=== PATIENT | female | born 2000 | race Caucasian/White ===

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

== ENCOUNTER → 2021-01-05 | Outpatient (CLI) | payer MEDICAID ==
[~2021-01-05] MED LIST: ALBU2.5V4; CETI10TA17; ELEX1TAB; FLUT16SP22; LIPA1CAP67; MONT10TA32; ONDA4TAB11 PO; PANT20TA18; POLY238P32; URSO300C3
[2021-01-05 15:46] LABS: BASOPHILS % (AUTO) 0 % (0-10); EOSINOPHILS # (AUTO) 0.2 10^3/uL (0.0-0.3); EOSINOPHILS % (AUTO) 2 % (0-10); HEMATOCRIT 34 % (35-52); HEMOGLOBIN 11.4 g/dL (11.5-16.0); LYMPHOCYTES % (AUTO) 27 % (12-44); MEAN CORPUSCULAR HEMOGLOBIN 28 pg (25-34); MEAN CORPUSCULAR HGB CONC 34 g/dL (32-36); MEAN CORPUSCULAR VOLUME 83 fL (80-99); MEAN PLATELET VOLUME 8.1 fL (9.0-12.2); MONOCYTES # (AUTO) 0.4 10^3/uL (0.0-1.0); MONOCYTES % (AUTO) 5 % (0-12); NEUTROPHILS # (AUTO) 4.8 10^3/uL (1.8-7.8); NEUTROPHILS % (AUTO) 65 % (42-75); PLATELET COUNT 160 10^3/uL (130-400); WHITE BLOOD COUNT 7.4 10^3/uL (4.3-11.0)
[2021-01-05 16:04] LABS: ALBUMIN 3.7 GM/DL (3.2-4.5); CHLORIDE 107 MMOL/L (98-107); POTASSIUM 3.8 MMOL/L (3.6-5.0); SODIUM 139 MMOL/L (135-145)
[2021-01-05 16:05] LABS: CALCIUM 8.8 MG/DL (8.5-10.1)
[2021-01-05 16:06] LABS: GLUCOSE 85 MG/DL (70-105)
[2021-01-05 16:07] LABS: TOTAL PROTEIN 6.9 GM/DL (6.4-8.2)
[2021-01-05 16:08] LABS: BILIRUBIN,TOTAL 0.3 MG/DL (0.1-1.0); CARBON DIOXIDE 22 MMOL/L (21-32)
[2021-01-05 16:10] LABS: ALKALINE PHOSPHATASE 76 U/L (40-136); CREATININE SERUM 0.56 MG/DL (0.60-1.30); GFR ESTIMATED > 60
[2021-01-05 16:11] LABS: BUN/CREATININE RATIO 16
[2021-01-05 16:13] LABS: ALANINE AMINOTRANSFERASE 13 U/L (0-55)
[2021-01-05 16:19] LABS: VANCOMYCIN,TROUGH 8.8 UG/ML (10.0-20.0)
== END ==
LOC: LAB 15:16
PROVIDERS: ATTEND Internal Medicine
DX: Z01.89 Encounter for other specified special examinations (principal)
CPT/HCPCS: 36415; 80053; 80202; 85025

== ENCOUNTER → 2021-01-08 | Outpatient (CLI) | payer MEDICAID ==
[~2021-01-08] MED LIST changes: +PYRI25TA4 PO
[2021-01-08 15:43] LABS: BASOPHILS % (AUTO) 1 % (0-10); EOSINOPHILS # (AUTO) 0.2 10^3/uL (0.0-0.3); EOSINOPHILS % (AUTO) 2 % (0-10); HEMATOCRIT 31 % (35-52); HEMOGLOBIN 10.6 g/dL (11.5-16.0); LYMPHOCYTES # (AUTO) 1.9 10^3/uL (1.0-4.0); LYMPHOCYTES % (AUTO) 23 % (12-44); MEAN CORPUSCULAR HEMOGLOBIN 28 pg (25-34); MEAN CORPUSCULAR HGB CONC 34 g/dL (32-36); MEAN CORPUSCULAR VOLUME 84 fL (80-99); MEAN PLATELET VOLUME 8.6 fL (9.0-12.2); MONOCYTES # (AUTO) 0.4 10^3/uL (0.0-1.0); MONOCYTES % (AUTO) 5 % (0-12); NEUTROPHILS # (AUTO) 5.6 10^3/uL (1.8-7.8); NEUTROPHILS % (AUTO) 69 % (42-75); PLATELET COUNT 151 10^3/uL (130-400); WHITE BLOOD COUNT 8.1 10^3/uL (4.3-11.0)
[2021-01-08 15:58] LABS: ALBUMIN 3.6 GM/DL (3.2-4.5); CHLORIDE 110 MMOL/L (98-107); POTASSIUM 3.6 MMOL/L (3.6-5.0); SODIUM 137 MMOL/L (135-145)
[2021-01-08 16:01] LABS: GLUCOSE 82 MG/DL (70-105); TOTAL PROTEIN 6.2 GM/DL (6.4-8.2)
[2021-01-08 16:02] LABS: BILIRUBIN,TOTAL 0.2 MG/DL (0.1-1.0); CARBON DIOXIDE 20 MMOL/L (21-32)
[2021-01-08 16:04] LABS: ALKALINE PHOSPHATASE 60 U/L (40-136); CREATININE SERUM 0.52 MG/DL (0.60-1.30); GFR ESTIMATED > 60
[2021-01-08 16:05] LABS: BUN/CREATININE RATIO 12
[2021-01-08 16:07] LABS: ALANINE AMINOTRANSFERASE 11 U/L (0-55)
[2021-01-08 16:13] LABS: VANCOMYCIN,TROUGH 7.6 UG/ML (10.0-20.0)
== END ==
LOC: LAB 15:20
DX: E84.0 Cystic fibrosis with pulmonary manifestations (principal); Z79.2 Long term (current) use of antibiotics
CPT/HCPCS: 36415; 80053; 80202; 85025

== ENCOUNTER 2021-01-10 17:50 | Emergency (ER) | payer MEDICAID ==
[~2021-01-10] VITALS: Ht 155 cm; Wt 45.0 kg
[~2021-01-10 17:50] MED LIST changes: -PYRI25TA4 PO
[2021-01-10 18:24] LABS: BILIRUBIN,URINE NEGATIVE (NEGATIVE); CLARITY,URINE CLEAR; COLOR,URINE YELLOW; GLUCOSE, URINE (UA) NEGATIVE (NEGATIVE); KETONES,URINE NEGATIVE (NEGATIVE); LEUKOCYTE ESTERASE ,URINE NEGATIVE (NEGATIVE); NITRITE,URINE NEGATIVE (NEGATIVE); PH,URINE 6.5 (5-9); PROTEIN,URINE NEGATIVE (NEGATIVE)
[2021-01-10] MEDS ORDERED: ONDANSETRON 4 MG/2 ML (SDV) Z0FRAN IVP ONE (18:30)
[2021-01-10] MEDS ORDERED: LACTATED RINGERS 1,000 ML IV ONE (18:30)
--- NOTE | 2021-01-10 18:34 | ED GI ---
General Chief Complaint: Abdominal/GI Problems Stated Complaint: N/V, 13 WKS PREG Nursing Triage Note: PT AMBULATES TO ER WITH C/O NAUSEA/ VOMITTING SINCE YESTERDAY. PT ALSO STATES SHE HAS A MIGRAINE AND IS 13 WEEKS . PT ALSO HAS RECENTLY BEEN D/CD FROM [facility] FOR HER CYSTIC FIBROSIS Source of Information: Patient Exam Limitations: No Limitations History of Present Illness Date Seen by Provider: Jan 10, 2021 Time Seen by Provider: 18:15 Initial Comments Patient to the ER by private conveyance with chief complaint that she recently got out of the hospital and finished her IV antibiotics for pneumonia at related to her cystic fibrosis. She says in the day she is been home she has had nausea related to her and went to get some pyridoxine but all he had was the 100 mg tablets which she thought might be too concentrated for her since she is of a slight build. She is going to asked Dr. Zuniga for a prescription. She does not have any Zofran but she says that has helped in the past. She has not been able to eat or drink all day. She is not having diarrhea fevers cough shortness of air wheezing or chest pain. She is 30 teen weeks and 2 days with an LMP of October 09, 2020. Allergies and Home Medications Allergies Coded Allergies: Penicillins (Verified Allergy, Unknown, 12/20/20) ceftaroline fosamil (Verified Allergy, Unknown, 12/20/20) piperacillin (Verified Allergy, Unknown, 12/20/20) tazobactam (Verified Allergy, Unknown, 12/20/20) vancomycin (Verified Allergy, Unknown, 12/20/20) Uncoded Allergies: hypofix (Allergy, Unknown, 12/20/20) Home Medications Ondansetron 4 Mg Tab.rapdis, 4 MG PO Q6H PRN for NAUSEA/VOMITING Prescribed by: OSMAR JARAMILLO on 12/20/20 1349 Ondansetron 4 Mg Tab.rapdis, 4 MG PO Q6H PRN for NAUSEA/VOMITING Prescribed by: GERARD ANGELA on 01/10/21 184 Pyridoxine HCl 25 Mg Tablet, 25 MG PO Q6H Prescribed by: GERARD ANGELA on 01/10/21 184 Patient Home Medication List Home Medication List Reviewed: Yes Review of Systems Review of Systems Constitutional: No chills, No fever EENTM: No Blurred Vision, No Double Vision Respiratory: Denies Cough, Denies Shortness of Air Cardiovascular: Denies Chest Pain, Denies Lightheadedness Gastrointestinal: Denies Constipated, Denies Diarrhea, Denies Nausea Genitourinary: Denies Drainage, Denies Frequency Musculoskeletal: No back pain, No joint pain All Other Systems Reviewed Negative Unless Noted: Yes Past Bzsmxuo-Oypdgg-Rmlyec Hx Patient Social History Tobacco Use?: No Use of E-Cig and/or Vaping dev: No Substance use?: No Seasonal Allergies Seasonal Allergies: Yes Past Medical History Surgeries: Yes Tonsillectomy Respiratory: Yes Pulmonary Fibrosis Cardiac: No Neurological: No Expected Date of Delivery: Jul 21, 2020 Genitourinary: No Gastrointestinal: Yes Gastroesophageal Reflux Musculoskeletal: No Endocrine: No HEENT: No Cancer: No Psychosocial: No Integumentary: No Blood Disorders: No Physical Exam Vital Signs Vital Signs - First Documented 01/10/21 18:10 Temp 36.7 Pulse 97 Resp 18 B/P (MAP) 116/69 (85) Capillary Refill : Less Than 3 Seconds Height/Weight/BMI Height: '" Weight: lbs. oz. kg; 18.00 BMI Method: General Appearance: WD/WN, mild distress HEENT: PERRL/EOMI, pharynx normal Neck: full range of motion, normal inspection Respiratory: lungs clear, normal breath sounds, no respiratory distress, no accessory muscle use Cardiovascular: normal peripheral pulses, regular rate, rhythm Peripheral Pulses: 2+ Radial Pulses (R), 2+ Radial Pulses (L) Gastrointestinal: normal bowel sounds, non tender, soft Neurologic/Psychiatric: alert, normal mood/affect, oriented x 3 Progress/Results/Core Measures Results/Orders Lab Results Laboratory Tests Test 01/10/21 18:15 01/10/21 18:27 Range/Units Urine Color YELLOW Urine Clarity CLEAR Urine pH 6.5 5-9 Urine Specific [place] 1.025 H 1.016-1.022 Urine Protein NEGATIVE NEGATIVE Urine Glucose (UA) NEGATIVE NEGATIVE Urine Ketones NEGATIVE NEGATIVE Urine Nitrite NEGATIVE NEGATIVE Urine Bilirubin NEGATIVE NEGATIVE Urine Urobilinogen 0.2 < = 1.0 MG/DL Urine Leukocyte Esterase NEGATIVE NEGATIVE Urine RBC (Auto) NEGATIVE NEGATIVE Urine RBC NONE /HPF Urine WBC NONE /HPF Urine Crystals NONE /LPF Urine Bacteria NEGATIVE /HPF Urine Casts NONE /LPF Urine Mucus NEGATIVE /LPF Urine Culture Indicated NO White Blood Count 9.8 4.3-11.0 10^3/uL Red Blood Count 3.98 3.80-5.11 10^6/uL Hemoglobin 11.5 11.5-16.0 g/dL Hematocrit 33 L 35-52 % Mean Corpuscular Volume 83 80-99 fL Mean Corpuscular Hemoglobin 29 25-34 pg Mean Corpuscular Hemoglobin Concent 35 32-36 g/dL Red Cell Distribution Width 14.6 H 10.0-14.5 % Platelet Count 147 130-400 10^3/uL Mean Platelet Volume 8.6 L 9.0-12.2 fL Immature Granulocyte % (Auto) 0 % Neutrophils (%) (Auto) 80 H 42-75 % Lymphocytes (%) (Auto) 14 12-44 % Monocytes (%) (Auto) 4 0-12 % Eosinophils (%) (Auto) 2 0-10 % Basophils (%) (Auto) 0 0-10 % Neutrophils # (Auto) 7.8 1.8-7.8 10^3/uL Lymphocytes # (Auto) 1.4 1.0-4.0 10^3/uL Monocytes # (Auto) 0.4 0.0-1.0 10^3/uL Eosinophils # (Auto) 0.2 0.0-0.3 10^3/uL Basophils # (Auto) 0.0 0.0-0.1 10^3/uL Immature Granulocyte # (Auto) 0.0 0.0-0.1 10^3/uL Sodium Level 137 135-145 MMOL/L Potassium Level 3.6 3.6-5.0 MMOL/L Chloride Level 105 98-107 MMOL/L Carbon Dioxide Level 21 21-32 MMOL/L Anion Gap 11 5-14 MMOL/L Blood Urea Nitrogen 6 L 7-18 MG/DL Creatinine 0.55 L 0.60-1.30 MG/DL Estimat Glomerular Filtration Rate > 60 BUN/Creatinine Ratio 11 Glucose Level 77 70-105 MG/DL Calcium Level 9.0 8.5-10.1 MG/DL Corrected Calcium 9.0 8.5-10.1 MG/DL Total Bilirubin 0.4 0.1-1.0 MG/DL Aspartate Amino Transf (AST/SGOT) 11 5-34 U/L Alanine Aminotransferase (ALT/SGPT) 12 0-55 U/L Alkaline Phosphatase 79 40-136 U/L Total Protein 7.2 6.4-8.2 GM/DL Albumin 4.0 3.2-4.5 GM/DL My Orders Orders - GERARD ANGELA Ua Culture If Indicated (01/10/21 18:08) Cbc With Automated Diff (01/10/21 18:26) Comprehensive Metabolic Panel (01/10/21 18:26) Ondansetron Injection (Zofran Injectio (01/10/21 18:30) Lactated Ringers (Lr 1000 Ml Iv Solution (01/10/21 18:30) Ed Iv/Invasive Line Start (01/10/21 18:26) Medications Given in ED Current Medications Medications Dose Ordered Sig/Ghazala Route Start Time Stop Time Status Last Admin Dose Admin Lactated Ringer's 1,000 ml @ 0 mls/hr Q0M ONCE IV 01/10/21 18:30 01/10/21 18:31 DC 01/10/21 18:33 999 MLS/HR Ondansetron HCl 4 mg ONCE ONCE IVP 01/10/21 18:30 01/10/21 18:31 DC 01/10/21 18:33 4 MG Vital Signs/I&O 01/10/21 18:10 Temp 36.7 Pulse 97 Resp 18 B/P (MAP) 116/69 (85) Blood Pressure Mean: 85 Progress Progress Note : Time: 18:38 Progress Note We will address her relative nausea and dehydration probably associated with her by 4 mg IV Zofran IV fluids and check some basic labs and urine. A prescription for Zofran and pyridoxine will be prescribed Departure Impression Primary Impression: Nausea/vomiting in Disposition: 01 HOME, SELF-CARE Condition: Stable Departure-Patient Inst. Decision time for Depature: 18:38 Referrals: LIZETH YU DO (PCP/Family) Primary Care Physician Patient Instructions: Nausea and Vomiting of Add. Discharge Instructions: Zofran 1 tablet under the tongue every 6 hours as necessary for nausea and/or vomiting. Pyridoxine 25 mg every 6 hours as necessary for nausea and/or vomiting. Follow-up with Dr. Zuniga. All discharge instructions reviewed with patient and/or family. Voiced understanding. Scripts Ondansetron (Ondansetron Odt) 4 Mg Tab.rapdis 4 MG PO Q6H PRN for NAUSEA/VOMITING, #10 TAB 0 Refills Prov: GERARD ANGELA 01/10/21 Pyridoxine HCl (Pyridoxine HCl) 25 Mg Tablet 25 MG PO Q6H for Nausea, #30 TAB 0 Refills Prov: GERARD ANGELA 01/10/21 GERARD NAGELA Jan 10, 2021 18:34
[2021-01-10 18:35] LABS: BASOPHILS % (AUTO) 0 % (0-10); EOSINOPHILS # (AUTO) 0.2 10^3/uL (0.0-0.3); EOSINOPHILS % (AUTO) 2 % (0-10); HEMATOCRIT 33 % (35-52); HEMOGLOBIN 11.5 g/dL (11.5-16.0); LYMPHOCYTES # (AUTO) 1.4 10^3/uL (1.0-4.0); LYMPHOCYTES % (AUTO) 14 % (12-44); MEAN CORPUSCULAR HEMOGLOBIN 29 pg (25-34); MEAN CORPUSCULAR HGB CONC 35 g/dL (32-36); MEAN CORPUSCULAR VOLUME 83 fL (80-99); MEAN PLATELET VOLUME 8.6 fL (9.0-12.2); MONOCYTES # (AUTO) 0.4 10^3/uL (0.0-1.0); MONOCYTES % (AUTO) 4 % (0-12); NEUTROPHILS # (AUTO) 7.8 10^3/uL (1.8-7.8); NEUTROPHILS % (AUTO) 80 % (42-75); PLATELET COUNT 147 10^3/uL (130-400); WHITE BLOOD COUNT 9.8 10^3/uL (4.3-11.0)
[2021-01-10] MEDS ORDERED: PYRI25TA4 PO (18:41)
[2021-01-10] MEDS ORDERED: ONDA4TAB11 PO (18:41)
[2021-01-10 18:47] LABS: CHLORIDE 105 MMOL/L (98-107); POTASSIUM 3.6 MMOL/L (3.6-5.0); SODIUM 137 MMOL/L (135-145)
[2021-01-10 18:49] LABS: BACTERIA,URINE NEGATIVE /HPF
[2021-01-10 18:49] LABS: GLUCOSE 77 MG/DL (70-105); TOTAL PROTEIN 7.2 GM/DL (6.4-8.2)
[2021-01-10 18:50] LABS: CARBON DIOXIDE 21 MMOL/L (21-32)
[2021-01-10 18:51] LABS: BILIRUBIN,TOTAL 0.4 MG/DL (0.1-1.0)
[2021-01-10 18:53] LABS: ALKALINE PHOSPHATASE 79 U/L (40-136); CREATININE SERUM 0.55 MG/DL (0.60-1.30); GFR ESTIMATED > 60
[2021-01-10 18:54] LABS: BUN/CREATININE RATIO 11
[2021-01-10 18:56] LABS: ALANINE AMINOTRANSFERASE 12 U/L (0-55)
[2021-01-10 19:40] VITALS: BP 106/71
[2021-01-10] MEDS ORDERED: ACETAMINOPHEN 500 MG TAB (TYLENOL) PO ONE (19:45)
== END 2021-01-10 19:40 | disposition home or self-care (01) ==
LOC: EDUNIT# 17:50 → ER 17:52
DX: O21.0 Mild hyperemesis gravidarum (principal); Z3A.13 13 weeks gestation of pregnancy
CPT/HCPCS: 36415; 80053; 81000; 85025

== ENCOUNTER 2021-01-12 10:12 | Emergency (ER) | payer MEDICAID ==
[~2021-01-12] VITALS: Ht 154.9 cm; Wt 45.4 kg
[~2021-01-12 10:12] MED LIST changes: +PYRI25TA4 PO
[2021-01-12 10:49] LABS: BILIRUBIN,URINE NEGATIVE (NEGATIVE); CLARITY,URINE CLEAR; COLOR,URINE YELLOW; GLUCOSE, URINE (UA) NEGATIVE (NEGATIVE); KETONES,URINE TRACE (NEGATIVE); LEUKOCYTE ESTERASE ,URINE TRACE (NEGATIVE); NITRITE,URINE NEGATIVE (NEGATIVE); PH,URINE 6.5 (5-9); PROTEIN,URINE NEGATIVE (NEGATIVE)
[2021-01-12 10:55] LABS: BASOPHILS % (AUTO) 0 % (0-10); EOSINOPHILS # (AUTO) 0.2 10^3/uL (0.0-0.3); EOSINOPHILS % (AUTO) 2 % (0-10); HEMATOCRIT 32 % (35-52); HEMOGLOBIN 10.9 g/dL (11.5-16.0); LYMPHOCYTES # (AUTO) 1.3 10^3/uL (1.0-4.0); LYMPHOCYTES % (AUTO) 19 % (12-44); MEAN CORPUSCULAR HEMOGLOBIN 28 pg (25-34); MEAN CORPUSCULAR HGB CONC 34 g/dL (32-36); MEAN CORPUSCULAR VOLUME 84 fL (80-99); MEAN PLATELET VOLUME 8.6 fL (9.0-12.2); MONOCYTES # (AUTO) 0.3 10^3/uL (0.0-1.0); MONOCYTES % (AUTO) 4 % (0-12); NEUTROPHILS # (AUTO) 5.2 10^3/uL (1.8-7.8); NEUTROPHILS % (AUTO) 74 % (42-75); PLATELET COUNT 130 10^3/uL (130-400)
[2021-01-12 11:01] LABS: BACTERIA,URINE NEGATIVE /HPF; SQUAMOUS EPITHELIAL CELL,UR RARE /HPF; WBC,URINE RARE /HPF
[2021-01-12 12:23] LABS: CHLORIDE 104 MMOL/L (98-107)
[2021-01-12 12:24] LABS: POTASSIUM 3.3 MMOL/L (3.6-5.0); SODIUM 137 MMOL/L (135-145)
[2021-01-12 12:25] LABS: CALCIUM 8.9 MG/DL (8.5-10.1); GLUCOSE 161 MG/DL (70-105)
[2021-01-12 12:27] LABS: CARBON DIOXIDE 21 MMOL/L (21-32)
[2021-01-12 12:29] LABS: CREATININE SERUM 0.65 MG/DL (0.60-1.30); GFR ESTIMATED > 60
[2021-01-12 12:30] LABS: BUN/CREATININE RATIO 9
--- NOTE | 2021-01-12 13:58 | Diagnostic Imaging Report ---
Clinical indication: Patient with cystic fibrosis. Patient is . consent form signed and patient was shielded. Exam: Chest x-ray PA and lateral views. Comparisons: None. Findings: There is prominence of the central and perihilar pulmonary bronchi likely related to bronchiectasis. There is curvilinear and increased amorphous airspace opacities involving the left lung apex. There is amorphous patchy airspace opacities and nodular areas involving the lateral left lung base. There is no pleural effusion or pneumothorax. Hyperinflated lungs are seen with slight thoracic kyphosis and increased retrosternal clear space and flattening of the hemidiaphragms. Port-A-Cath seen overlying the right chest with tip in the distal spaces vena cava. Pulmonary vasculature and cardiac silhouettes within normal limits as visualized. Bones show no significant abnormality. Impression: 1: Lung findings consistent with patient's history of cystic fibrosis. There is concern for bronchiectasis centrally and involving the perihilar regions. 2: There is amorphous and curvilinear opacities in left lung apex and lateral left lung base. Acute infiltrates, mucus plugging, and/or scarring may be considered. Comparison to prior chest x-rays and clinical symptoms would better evaluate if there are acute infiltrates. Dictated by: Dictated on workstation # [id number]
--- NOTE | 2021-01-12 14:24 | ED General ---
General Chief Complaint: Female Reproductive Stated Complaint: VAGINAL BLEEDING 13 WKS PREG Nursing Triage Note: PT ARRIVED BY PRIVATE VEHICLE WITH CHIEF COMPLAINT OF VAGINAL BLEEDING. PT WAS ALERT, ORIENTED X 4 AND AMBULATORY. PT STATED ONSET WAS THIS MORNING WHEN SHE WENT TO THE BATHROOM AND BEFORE URINATING SHE HAD BLEEDING. LAST MENSTRAL WAS SEPTEMBER BUT THEY STATED SHE IS 12 WEEKS AND [address] YU. PT'S VITALS WERE DONE ON ARRIVAL AND URINE WAS OBTAINED. Source of Information: Patient Exam Limitations: No Limitations History of Present Illness Date Seen by Provider: Jan 12, 2021 Time Seen by Provider: 10:23 Initial Comments This 20-year-old young lady at 12 to 14 weeks gestational age presents to the emergency room with complaints of vaginal bleeding without pain or other symptoms. She has cystic fibrosis and sees a high risk slunk skinner. Bleeding is no longer significant. During exam she is also noted to be tachycardic and to have crackles and rhonchi in the left lung. She reports recently being dismissed from [facility] where she was treated with IV antibiotics. She just finished antibiotic therapy a couple days ago. She is afebrile. Allergies and Home Medications Allergies Coded Allergies: Penicillins (Verified Allergy, Unknown, 12/20/20) ceftaroline fosamil (Verified Allergy, Unknown, 12/20/20) piperacillin (Verified Allergy, Unknown, 12/20/20) tazobactam (Verified Allergy, Unknown, 12/20/20) vancomycin (Verified Allergy, Unknown, 12/20/20) Uncoded Allergies: hypofix (Allergy, Unknown, 12/20/20) Home Medications Ondansetron 4 Mg Tab.rapdis, 4 MG PO Q6H PRN for NAUSEA/VOMITING Prescribed by: OSMAR JARAMILLO on 12/20/20 1349 Ondansetron 4 Mg Tab.rapdis, 4 MG PO Q6H PRN for NAUSEA/VOMITING Prescribed by: GERARD ANGELA on 01/10/21 184 Pyridoxine HCl 25 Mg Tablet, 25 MG PO Q6H Prescribed by: GERARD ANGELA on 01/10/21 184 Patient Home Medication List Home Medication List Reviewed: Yes Review of Systems Review of Systems Constitutional: no symptoms reported EENTM: no symptoms reported Respiratory: see HPI Cardiovascular: see HPI Gastrointestinal: no symptoms reported Genitourinary: see HPI : Yes LMP: Oct 02, 2020 Musculoskeletal: no symptoms reported Skin: no symptoms reported Psychiatric/Neurological: No Symptoms Reported Hematologic/Lymphatic: See HPI Immunological/Allergic: no symptoms reported Past Zejwjcj-Gxwhbx-Pdyjws Hx Patient Social History Tobacco Use?: No Smoking Status: Never a Smoker Substance use?: No Alcohol Use?: No Pt feels they are or have been: No Seasonal Allergies Seasonal Allergies: Yes Past Medical History Surgeries: Yes (Ports, feeding tube) Tonsillectomy Respiratory: Yes Pulmonary Fibrosis (Cystic fibrosis) Cardiac: No Neurological: No : Yes Last Menstrual Period: Oct 02, 1990 Genitourinary: No Gastrointestinal: Yes Gastroesophageal Reflux Musculoskeletal: No Endocrine: No HEENT: No Cancer: No Psychosocial: No Integumentary: No Blood Disorders: No Physical Exam Vital Signs Vital Signs - First Documented 01/12/21 10:38 Temp 36.9 Pulse 127 Resp 18 B/P (MAP) 115/71 (86) Pulse Ox 100 O2 Delivery Room Air Capillary Refill : Less Than 3 Seconds Height, Weight, BMI Height: '" Weight: lbs. oz. 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 Norm as Tested Skin: Normal Color, Warm/Dry Progress/Results/Core Measures Suspected Sepsis SIRS Temperature: Pulse: 127 Respiratory Rate: 18 Laboratory Tests 01/12/21 10:50: White Blood Count 7.0 Blood Pressure 115 /71 Mean: 86 Laboratory Tests 01/12/21 10:50: Creatinine 0.65, Platelet Count 130 Results/Orders Lab Results Laboratory Tests Test 01/12/21 10:38 01/12/21 10:50 01/12/21 12:33 Range/Units Urine Color YELLOW Urine Clarity CLEAR Urine pH 6.5 5-9 Urine Specific [place] 1.015 L 1.016-1.022 Urine Protein NEGATIVE NEGATIVE Urine Glucose (UA) NEGATIVE NEGATIVE Urine Ketones TRACE H NEGATIVE Urine Nitrite NEGATIVE NEGATIVE Urine Bilirubin NEGATIVE NEGATIVE Urine Urobilinogen 0.2 < = 1.0 MG/DL Urine Leukocyte Esterase TRACE H NEGATIVE Urine RBC (Auto) NEGATIVE NEGATIVE Urine RBC NONE /HPF Urine WBC RARE /HPF Urine Squamous Epithelial Cells RARE /HPF Urine Crystals NONE /LPF Urine Bacteria NEGATIVE /HPF Urine Casts NONE /LPF Urine Mucus NEGATIVE /LPF Urine Culture Indicated NO White Blood Count 7.0 4.3-11.0 10^3/uL Red Blood Count 3.84 3.80-5.11 10^6/uL Hemoglobin 10.9 L 11.5-16.0 g/dL Hematocrit 32 L 35-52 % Mean Corpuscular Volume 84 80-99 fL Mean Corpuscular Hemoglobin 28 25-34 pg Mean Corpuscular Hemoglobin Concent 34 32-36 g/dL Red Cell Distribution Width 15.0 H 10.0-14.5 % Platelet Count 130 130-400 10^3/uL Mean Platelet Volume 8.6 L 9.0-12.2 fL Immature Granulocyte % (Auto) 0 % Neutrophils (%) (Auto) 74 42-75 % Lymphocytes (%) (Auto) 19 12-44 % Monocytes (%) (Auto) 4 0-12 % Eosinophils (%) (Auto) 2 0-10 % Basophils (%) (Auto) 0 0-10 % Neutrophils # (Auto) 5.2 1.8-7.8 10^3/uL Lymphocytes # (Auto) 1.3 1.0-4.0 10^3/uL Monocytes # (Auto) 0.3 0.0-1.0 10^3/uL Eosinophils # (Auto) 0.2 0.0-0.3 10^3/uL Basophils # (Auto) 0.0 0.0-0.1 10^3/uL Immature Granulocyte # (Auto) 0.0 0.0-0.1 10^3/uL Sodium Level 137 135-145 MMOL/L Potassium Level 3.3 L 3.6-5.0 MMOL/L Chloride Level 104 98-107 MMOL/L Carbon Dioxide Level 21 21-32 MMOL/L Anion Gap 12 5-14 MMOL/L Blood Urea Nitrogen 6 L 7-18 MG/DL Creatinine 0.65 0.60-1.30 MG/DL Estimat Glomerular Filtration Rate > 60 BUN/Creatinine Ratio 9 Glucose Level 161 H 70-105 MG/DL Calcium Level 8.9 8.5-10.1 MG/DL C-Reactive Protein High Sensitivity 9.95 H 0.00-0.50 MG/DL Human Chorionic Gonadotropin, Quant [id number] H <5 MIU/ML Influenza Type A (RT-PCR) Not Detected Not Detecte Influenza Type B (RT-PCR) Not Detected Not Detecte SARS-CoV-2 RNA (RT-PCR) Not Detected Not Detecte My Orders Orders - MIKKI BLAIR MD Cbc With Automated Diff (01/12/21 10:23) Hcg,Quantitative (01/12/21 10:23) Ua Culture If Indicated (01/12/21 10:23) Abo Rh Type (01/12/21 10:23) Basic Metabolic Panel (01/12/21 12:13) Hs C Reactive Protein (01/12/21 12:13) Chest Pa/Lat (2 View) (01/12/21 12:13) Covid 19 Inhouse Test (01/12/21 12:13) Influenza A And B By Pcr (01/12/21 12:13) Potassium Chloride (Tablet) (Klor Con Ta (01/12/21 15:30) Vital Signs/I&O 01/12/21 01/12/21 10:38 15:35 Temp 36.9 Pulse 127 97 Resp 18 16 B/P (MAP) 115/71 (86) 111/71 Pulse Ox 100 100 O2 Delivery Room Air Room Air Capillary Refill : Less Than 3 Seconds Blood Pressure Mean: 86 Progress Note : Progress Note I contacted [facility] for phone referral. I discussed with the cystic fibrosis clinic physician almond blancher hand. We discussed x-ray findings, vital signs, and labs. The consulting physician did not feel that further treatment with antibiotics or transfer were necessary. He recommended that she contact the CF clinic to discuss further in the morning. I encouraged her to drink plenty of clear liq uids and to also follow-up with her slunk skinner as soon as possible. See discharge instructions. Patient had some mild hypokalemia but declined oral replacement. She will work on dietary replacement. Diagnostic Imaging Diagonstic Imaging: Xray Plain Films/CT/US/NM/MRI: chest Comments Chest x-ray viewed by me and report reviewed. See report below: NAME: PARISA [facility]EL [facility] REC#: [id number] PT STATUS: DEP ER : 2001 PHYSICIAN: MIKKI BLAIR MD ADMIT DATE: 01/12/21/ER Signed Date of Exam:01/12/21 CHEST PA/LAT (2 VIEW) Clinical indication: Patient with cystic fibrosis. Patient is . consent form signed and patient was shielded. Exam: Chest x-ray PA and lateral views. Comparisons: None. Findings: There is prominence of the central and perihilar pulmonary bronchi likely related to bronchiectasis. There is curvilinear and increased amorphous airspace opacities involving the left lung apex. There is amorphous patchy airspace opacities and nodular areas involving the lateral left lung base. There is no pleural effusion or pneumothorax. Hyperinflated lungs are seen with slight thoracic kyphosis and increased retrosternal clear space and flattening of the hemidiaphragms. Port-A-Cath seen overlying the right chest with tip in the distal spaces vena cava. Pulmonary vasculature and cardiac silhouettes within normal limits as visualized. Bones show no significant abnormality. Impression: 1: Lung findings consistent with patient's history of cystic fibrosis. There is concern for bronchiectasis centrally and involving the perihilar regions. 2: There is amorphous and curvilinear opacities in left lung apex and lateral left lung base. Acute infiltrates, mucus plugging, and/or scarring may be considered. Comparison to prior chest x-rays and clinical symptoms would better evaluate if there are acute infiltrates. Dictated by: Dictated on workstation # [id number] Dict: 01/12/21 1350 Trans: 01/12/21 1626 CV [id number] Interpreted by: ROBIN COFFMAN MD Electronically signed by: ROBIN COFFMAN MD 01/12/21 1626 Departure Impression Primary Impression: Vaginal bleeding during Additional Impressions: Cystic fibrosis Hypokalemia Disposition: 01 HOME, SELF-CARE Condition: Improved Departure-Patient Inst. Decision time for Depature: 15:25 Referrals: LIZETH YU DO (PCP/Family) Primary Care Physician Patient Instructions: Bleeding in Early ED Add. Discharge Instructions: Observe vaginal rest (nothing in the vagina including intercourse) until cleared by your slunk skinner. Call your slunk skinner tomorrow morning for further instructions. Also contact your CF clinic tomorrow for further instructions. Return to care if you have worsening symptoms. Call with questions or concerns. Drink plenty of clear liquids to stay well-hydrated. All discharge instructions reviewed with patient and/or family. Voiced understanding. MIKKI BLAIR MD Jan 12, 2021 14:24
[2021-01-12] MEDS: KCL 10 MEQ TAB (MICRO K) PO ONE ×2 (15:21→15:24)
[2021-01-12 15:35] VITALS: BP 111/71
== END 2021-01-12 15:35 | disposition home or self-care (01) ==
LOC: EDUNIT# 10:12 → ER 10:14
DX: O46.91 Antepartum hemorrhage, unspecified, first trimester (principal); E84.9 Cystic fibrosis, unspecified; E87.6 Hypokalemia; Z3A.00 Weeks of gestation of pregnancy not specified; Z88.0 Allergy status to penicillin; Z88.1 Allergy status to other antibiotic agents; Z20.822 Contact with and (suspected) exposure to COVID-19
CPT/HCPCS: 36415; 71046; 80048; 81000; 84702; 85025; 86141; 86900; 86901; 87636

== ENCOUNTER 2023-05-11 13:35 | Emergency (ER) | payer MEDICARE, MEDICAID ==
[~2023-05-11] VITALS: Ht 154.9 cm; Wt 48.0 kg
[~2023-05-11 13:35] MED LIST changes: +MONT-40; -MONT10TA32
--- NOTE | 2023-05-11 14:00 | ED Fall/Injury ---
General Chief Complaint: Trauma-Non Activation Stated Complaint: FALL | TAILBONE INJ Nursing Triage Note: PT AMB TO [facility] WITH CC OF FALL YESTERDAY. PT STATES WAS MOVING THINGS AT HER HOUSE WHEN SHE SLIPPED AND INJURED HER "TAILBONE." PT DENIES HITTING HEAD OR LOC. PT REPORTS IS 19 WEEKS PREG. DENIES ABD PAIN OR INJURY TO ABD Source: patient Exam Limitations: no limitations History of Present Illness Date Seen by Provider: May 11, 2023 Time Seen by Provider: 13:59 Initial Comments Patient is a 22-year-old female with a history of cystic fibrosis who presents ED with tailbone pain. She states yesterday she was moving a couch she fell directly on her tailbone. She states she landed on carpet that had concrete underneath. She reports pain to her tailbone. Pain worth any type of movement when she stands sets or lies directly on the tailbone. She denies any bruising or swelling. Has been taken Tylenol without much improvement. She states she was recently admitted for cystic fibrosis exacerbation. She does see a high school guidance counselor/GYN at [facility]. She is currently 19 weeks . She denies of any abdominal injury, pain with urination, frequent urination, bowel or urine incontinence, saddle paresthesia, lower back pain. She denies hitting her head. States she is having difficulty sleeping. Allergies and Home Medications Allergies Coded Allergies: Penicillins (Verified Allergy, Unknown, 12/20/20) ceftaroline fosamil (Verified Allergy, Unknown, 12/20/20) piperacillin (Verified Allergy, Unknown, 12/20/20) tazobactam (Verified Allergy, Unknown, 12/20/20) vancomycin (Verified Allergy, Unknown, 12/20/20) Uncoded Allergies: hypofix (Allergy, Unknown, 12/20/20) Patient Home Medication List Home Medication List Reviewed: Yes Albuterol Sulfate (Albuterol Sulfate) 2.5 Mg/3 Ml Vial.neb, (Reported) Entered as Reported by: ARTUR PAZ on 12/20/20 1237 Cetirizine HCl (Cetirizine HCl) 10 Mg Tablet, (Reported) Entered as Reported by: ARTUR PAZ on 12/20/20 1237 Elexacaftor/Tezacaftor/Ivacaft (Trikafta 100/50/75 mg-150 mg) 1 Each Tablet.seq, (Reported) Entered as Reported by: ARTUR PAZ on 12/20/20 1237 Fluticasone Propionate (Fluticasone Propionate) 16 Gm Phelps.susp, (Reported) Entered as Reported by: ARTUR PAZ on 12/20/20 1237 Lipase/Protease/Amylase (Chago Henry 36,000 Units Capsule) 1 Each Capsule.dr, (Reported) Entered as Reported by: ARTUR PAZ on 12/20/20 1237 Montelukast Sodium (Montelukast Sodium) 10 Mg Tablet, (Reported) Entered as Reported by: ARTUR PAZ on 12/20/20 1237 Ondansetron (Ondansetron Odt) 4 Mg Tab.rapdis, 4 MG PO Q6H PRN for NAUSEA/VOMITING Prescribed by: OSMAR JARAMILLO on 12/20/20 1349 Ondansetron (Ondansetron Odt) 4 Mg Tab.rapdis, 4 MG PO Q6H PRN for NAUSEA/VOMITING Prescribed by: GERARD ANGELA on 01/10/21 184 Pantoprazole Sodium (Pantoprazole Sodium) 20 Mg Tablet., (Reported) Entered as Reported by: ARTUR PAZ on 12/20/20 123 Polyethylene Glycol 3350 ([id number]) 238 Gm Powder, (Reported) Entered as Reported by: ARTUR PAZ on 12/20/20 123 Pyridoxine HCl (Pyridoxine HCl) 25 Mg Tablet, 25 MG PO Q6H Prescribed by: GERARD ANGELA on 01/10/21 184 Tramadol HCl (Tramadol HCl) 50 Mg Tablet, 50 MG PO Q8H PRN for PAIN-MILD TO MODERATE Prescribed by: DANDRE SANTILLAN on 05/11/23 1405 Ursodiol (Ursodiol) 300 Mg Capsule, (Reported) Entered as Reported by: ARTUR PAZ on 12/20/20 1237 Review of Systems Review of Systems Constitutional: No chills, No diaphoresis Eyes: Denies Blurred Vision, Denies Drainage, Denies Inflammation, Denies Pain, Denies Photophobia Ears, Nose, Mouth, Throat: denies ear pain, denies ear discharge Respiratory: No cough, No dyspnea on exertion, No short of breath Cardiovascular: No chest pain Gastrointestinal: No abdominal pain, No diarrhea, No nausea, No vomiting Genitourinary: No decreased output, No discharge Musculoskeletal: No back pain, No joint pain; muscle pain, other (Tailbone pain) Skin: No change in color, No change in hair/nails Past Vzghsrr-Amexpl-Eetimc Hx Patient Social History Tobacco Use?: No Substance use?: No Alcohol Use?: Yes Alcohol Frequency: Rarely Seasonal Allergies Seasonal Allergies: Yes Past Medical History Surgery/Hospitalization HX: CYSTIC FIBROSIS SX: PORT PLACEMENT, FEEDING TUBE, Surgeries: Yes (Ports, feeding tube) Tonsillectomy Respiratory: Yes Pulmonary Fibrosis Cardiac: No Neurological: No Genitourinary: No Gastrointestinal: Yes Gastroesophageal Reflux Musculoskeletal: No Endocrine: No HEENT: No Cancer: No Psychosocial: No Integumentary: No Blood Disorders: No Physical Exam Vital Signs Vital Signs - First Documented 05/11/23 13:43 Temp 36.8 Pulse 91 Resp 18 B/P (MAP) 102/69 (80) Pulse Ox 100 O2 Delivery Room Air Capillary Refill : Less Than 3 Seconds Height, Weight, BMI Height: '" Weight: lbs. oz. kg; 20.00 BMI Method: General Appearance: WD/WN, no apparent distress HEENT: PERRL/EOMI, normal ENT inspection, TMs normal, pharynx normal Neck: non-tender, full range of motion, supple Cardiovascular: regular rate, rhythm, no edema, no gallop, no JVD Respiratory: chest non-tender, lungs clear, normal breath sounds, no respiratory distress, no accessory muscle use Gastrointestinal: normal bowel sounds, non tender, soft, no organomegaly, other (Patient without any abdominal tenderness.) Pelvic: normal external exam Back: normal inspection, no CVA tenderness, no vertebral tenderness, other (Patient without any thoracic or lumbar midline tenderness.) Extremities: normal range of motion, non-tender, normal inspection, no pedal edema Neurologic/Psychiatric: certified neurodiagnostic technologist II-XII nml as tested, no motor/sensory deficits, alert, normal mood/affect, oriented x 3 Skin: normal color, warm/dry [place] Coma Score Best Eye Response: (4) Open Spontaneously Best Verbal Response: (5) Oriented Best Motor Response: (6) Obeys Commands Funmi Total: 15 Progress/Results/Core Measures Results/Orders My Orders Vital Signs/I&O 05/11/23 05/11/23 13:43 14:16 Temp 36.8 Pulse 91 91 Resp 18 18 B/P (MAP) 102/69 (80) 102/69 Pulse Ox 100 100 O2 Delivery Room Air Room Air Blood Pressure Mean: 80 Departure Communication (PCP) Patient is a 22 who is 19 weeks presents ED for tailbone pain. She fell yesterday landing directly on her tailbone. She denies hitting her abdomen. She is complaining of pain with walking standing. History of tailbone fracture in the past. cardiac activity is 140 bpm. She has no abdominal tenderness. No vaginal bleeding. High risk secondary to her cystic fibrosis. She states she recently finished tramadol for her cystic fibrosis pain and was recently discharged. Patient has no thoracic or lumbar midline tenderness. She has no bowel or urine incontinence or saddle paresthesia. Ther e is no evidence of trauma to the abdomen. Due to her limiting imaging as much as we can. She does have tailbone tenderness along the sacrum and coccyx. She may have a potential fracture. Discussed with patient if there is a fracture this will be treated conservatively most likely. Suggest holding imaging as this may result in radiation to her baby. Discussed if positive for fracture, treatment would not be any different. She agreed to wait at this time. I did prescribe her a pillow donut for her to use. She was requesting tramadol which she has been using. Discussed with prolonged use of tramadol Risk for tetratogenicity low, through risk of complications including respiratory depression and opiate withdrawal syndrome. She agreed to proceed. She will follow-up with her WEB OFFSET PRESS FEEDER in the next 1 to 2 days. If any worsening pain, vaginal bleeding, severe abdominal pain to return back to ED. Since she is having no abdominal tenderness or evidence of trauma to the abdomen ultrasound was held. Vital signs stable. Impression Primary Impression: Pain in the coccyx Disposition: 01 HOME, SELF-CARE Condition: Stable Departure-Patient Inst. Decision time for Depature: 14:04 Referrals: [facility]/Nina COMER,LOCAL PHYSICIAN (PCP) Primary Care Physician Patient Instructions: Coccyx Injury (DC) Add. Discharge Instructions: Recommend follow-up with your WEB OFFSET PRESS FEEDER for further evaluation. If any worsening symptoms such as severe abdominal pain vaginal bleeding to return back to ED. All discharge instructions reviewed with patient and/or family. Voiced understanding. Scripts Tramadol HCl (Tramadol HCl) 50 Mg Tablet 50 MG PO Q8H PRN for PAIN-MILD TO MODERATE, #6 TAB Prov: KENAN TELLO 05/11/23 KENAN TELLO May 11, 2023 14:00
[2023-05-11] MEDS ORDERED: TRAM50TA3 PO (14:05)
[2023-05-11 14:16] VITALS: BP 102/69
== END 2023-05-11 14:16 | disposition home or self-care (01) ==
LOC: EDUNIT# 13:35 → ER 13:39
DX: M53.3 Sacrococcygeal disorders, not elsewhere classified (principal)